=== PATIENT | female | born 1930 | race Caucasian/White ===

== ENCOUNTER → 2016-05-23 | Outpatient (CLI) | payer MEDICARE, BC ==
[~2016-05-23] MED LIST: ALLO100T PO; ATN25T PO; B CM1TAB PO; BIMA2.5D4 OU; BRIM5DRO2 OU; CA C1TAB78 PO; ENXP80I.8 SC; SPIR1TAB3 PO; TIMO10DR OU; WARF4TAB3 PO; [UNRECOGNIZED DRUG - CODE] PO
[2016-05-23 11:24] LABS: MEAN CORPUSCULAR HGB CONC 32.6 g/dL (31.0-37.0); MEAN CORPUSCULAR VOLUME 89 FL (80-100); MEAN PLATELET VOLUME 8.7 FL (6.0-9.5); PLATELET COUNT 402 10^3uL (150-450)
[2016-05-23 11:50] LABS: BAND NEUTROPHILS % 0 % (0-6); EOSINOPHILS % 0 % (0-4); LYMPHOCYTES # 0.7 #; MONOCYTES # 0.3 #; MONOCYTES % 5 % (3-11); SEGMENTED NEUTROPHILS % 83 % (51-67); TOTAL CELLS COUNTED 100
[2016-05-23 11:51] LABS: RBC MORPH NORMAL (NORMAL)
[2016-05-23 12:49] LABS: ALBUMIN 3.2 g/dL (3.4-5.0); PHOSPHORUS 3.6 mg/dL (2.4-4.9); TOTAL PROTEIN 7.3 g/dL (6.4-8.5)
== END ==
LOC: LAB 10:42
PROVIDERS: ATTEND Internal Medicine Hematology & Oncology
DX: C90.00 Multiple myeloma not having achieved remission (principal)
CPT/HCPCS: 36415; 80053; 82784; 83615; 83735; 84100; 84155; 85007; 85027; 86334

== ENCOUNTER 2016-07-17 10:06 | Outpatient (RCR) | payer MEDICARE, BC ==
[2016-07-17 10:20] LABS: MEAN CORPUSCULAR HEMOGLOBIN 29.6 PG (26.0-34.0); MEAN CORPUSCULAR HGB CONC 33.1 g/dL (31.0-37.0); MEAN CORPUSCULAR VOLUME 90 FL (80-100); MEAN PLATELET VOLUME 9.2 FL (6.0-9.5); PLATELET COUNT 283 10^3uL (150-450); WHITE BLOOD COUNT 4.12 10^3uL (4.0-11.0)
[2016-07-17 10:40] LABS: ANISOCYTOSIS SLIGHT; BAND NEUTROPHILS % 1 % (0-6); EOSINOPHILS % 7 % (0-4); LYMPHOCYTES # 1.5 #; MONOCYTES # 0.6 #; MONOCYTES % 14 % (3-11); RBC MORPH SEE REFERENCE (NORMAL); SEGMENTED NEUTROPHILS % 42 % (51-67); TOTAL CELLS COUNTED 100
[2016-07-17 10:57] LABS: ALBUMIN 3.3 g/dL (3.4-5.0); ANION GAP 12.6 MEQ/L (3-15); CALCULATED IONIZED CALCIUM 3.8 mg/dL (3.8-4.6); MAGNESIUM* 1.8 mg/dL (1.6-2.3)
[2016-08-07 10:32] LABS: MEAN CORPUSCULAR HGB CONC 31.8 g/dL (31.0-37.0); MEAN CORPUSCULAR VOLUME 91 FL (80-100); MEAN PLATELET VOLUME 8.9 FL (6.0-9.5); PLATELET COUNT 251 10^3uL (150-450); WHITE BLOOD COUNT 5.13 10^3uL (4.0-11.0)
[2016-08-07 10:50] LABS: ALBUMIN 3.7 g/dL (3.4-5.0); ANION GAP 11.9 MEQ/L (3-15); CALCULATED IONIZED CALCIUM 3.8 mg/dL (3.8-4.6); MAGNESIUM* 1.9 mg/dL (1.6-2.3); TOTAL PROTEIN 7.6 g/dL (6.4-8.5)
[2016-08-07 10:53] LABS: BAND NEUTROPHILS % 0 % (0-6); EOSINOPHILS % 2 % (0-4); LYMPHOCYTES # 1.1 #; MONOCYTES # 0.2 #; MONOCYTES % 4 % (3-11); RBC MORPH NORMAL (NORMAL); SEGMENTED NEUTROPHILS % 73 % (51-67); TOTAL CELLS COUNTED 100
[2016-09-08 09:24] LABS: MEAN CORPUSCULAR HEMOGLOBIN 28.5 PG (26.0-34.0); MEAN CORPUSCULAR VOLUME 91 FL (80-100); MEAN PLATELET VOLUME 9.3 FL (6.0-9.5); PLATELET COUNT 241 10^3uL (150-450); WHITE BLOOD COUNT 5.35 10^3uL (4.0-11.0)
[2016-09-08 09:54] LABS: MEAN CORPUSCULAR HGB CONC 31.5 g/dL (31.0-37.0)
[2016-09-08 09:55] LABS: ANISOCYTOSIS MODERATE; BAND NEUTROPHILS % 2 % (0-6); EOSINOPHILS % 9 % (0-4); LYMPHOCYTES # 1.6 #; MONOCYTES # 0.4 #; MONOCYTES % 7 % (3-11); RBC MORPH SEE REFERENCE (NORMAL); SEGMENTED NEUTROPHILS % 52 % (51-67); TOTAL CELLS COUNTED 100
[2016-09-08 10:21] LABS: ALBUMIN 3.3 g/dL (3.4-5.0); ANION GAP 13.8 MEQ/L (3-15); MAGNESIUM* 1.6 mg/dL (1.6-2.3); TOTAL PROTEIN 6.6 g/dL (6.4-8.5)
== END 2016-10-15 | disposition home or self-care (01) ==
LOC: LAB 10:06 → EDSTATUS 10:06
PROVIDERS: ATTEND Internal Medicine Hematology & Oncology
DX: C90.00 Multiple myeloma not having achieved remission (principal)
CPT/HCPCS: 36415; 80053; 82565; 82784; 83615; 83735; 84100; 84155; 85007; 85027; 86334

== ENCOUNTER → 2016-09-19 | Outpatient (CLI) | payer MEDICARE, BC ==
--- NOTE | 2016-09-19 13:36 | Diagnostic Imaging Report ---
PROCEDURE: CT cervical spine without contrast. TECHNIQUE: Multiple contiguous axial images were obtained through the cervical spine without the use of intravenous contrast. Sagittal and coronal reformations were then performed. INDICATION: Neck pain and stiffness which started one week ago. FINDINGS: There is good alignment of the vertebral bodies. Body height is well maintained. There is loss of disc spaces throughout the cervical spine, most severe at C4 through C7. Hypertrophic lipping of the endplates. Atlantoaxial joint is intact. Facets are in good alignment. There are noted diffuse osteolytic lesions scattered throughout the vertebral bodies as well as posterior elements of the cervical spine, also noted within the clavicles bilaterally and the mandible. There are no fractures demonstrated. The surrounding soft tissues appear normal. IMPRESSION: 1. No acute abnormalities demonstrated. 2. Diffuse osteolytic lesions which do raise concern of multiple myeloma. This differential was previously discussed on CT chest of 03/13/2016. Dictated by: Dictated on workstation # [id number]
== END ==
LOC: RAD 12:58
PROVIDERS: ATTEND Internal Medicine Hematology & Oncology
DX: M54.2 Cervicalgia (principal)
CPT/HCPCS: 72125

== ENCOUNTER → 2016-10-16 | Outpatient (CLI) | payer MEDICARE, BC ==
[2016-10-16 11:17] LABS: MEAN CORPUSCULAR HEMOGLOBIN 29.3 PG (26.0-34.0); MEAN CORPUSCULAR HGB CONC 31.8 g/dL (31.0-37.0); MEAN CORPUSCULAR VOLUME 92 FL (80-100); PLATELET COUNT 193 10^3uL (150-450)
[2016-10-16 12:38] LABS: ANISOCYTOSIS SLIGHT; BAND NEUTROPHILS % 0 % (0-6); EOSINOPHILS % 13 % (0-4); LYMPHOCYTES # 1.2 #; MONOCYTES # 0.4 #; MONOCYTES % 11 % (3-11); POIKILOCYTOSIS SLIGHT; RBC MORPH SEE REFERENCE (NORMAL); SEGMENTED NEUTROPHILS % 49 % (51-67); TOTAL CELLS COUNTED 100
== END ==
LOC: EDSTATUS 07:02 → LAB 08:45
PROVIDERS: ATTEND Internal Medicine Hematology & Oncology
DX: C90.00 Multiple myeloma not having achieved remission (principal)
CPT/HCPCS: 36415; 85025

== ENCOUNTER → 2016-10-17 | Outpatient (CLI) | payer MEDICARE, BC | LOC: LAB 14:18 | PROVIDERS: ATTEND Internal Medicine Hematology & Oncology | DX: C90.00 Multiple myeloma not having achieved remission (principal) | CPT/HCPCS: 36415; 82565 ==